=== PATIENT | male | born 1990 | race American Indian/Alaskan Native ===

== ENCOUNTER 2019-02-27 04:45 | Day surgery (SDC) | payer OTHER ==
[2019-02-27 07:49] VITALS: BMI 21.7
[2019-02-27 11:15] VITALS: TEMP 98.6
[2019-02-27 14:28] VITALS: BP 113/66; PULSE 69
--- NOTE | 2019-02-28 17:49 | PATH ---
Surgical Pathology Report Patient Name: PAM TEIXEIRA [facility]. Rec. #: [id number] /Age/Gender: 1990 (Age: 29) / M Account: [id number] Location: U-ENDOSCOPY Taken: 02/27/2019 Received: 02/27/2019 Reported: 02/28/2019 Physicians: Jaspal Barrett D.O. Specimen(s) Received A: DUODENUM B: BODY/ANTRUM Clinical History Early satiety, H. Pylori Postoperative diagnosis: Gastritis Final Diagnosis A. DUODENUM, BIOPSY: DUODENAL MUCOSA WITHOUT SIGNIFICANT PATHOLOGIC FINDINGS. B. STOMACH, BODY/ANTRUM, BIOPSY: GASTRIC MUCOSA WITH MODERATE CHRONIC ACTIVE GASTRITIS. IMMUNOHISTOCHEMICAL STAIN FOR H. PYLORI IS POSITIVE (MANY). Electronically Signed Sandi Kilpatrick M.D. Gross Description A. Received in formalin, labeled "biopsy duodenum" is a garcia, irregular portion of soft tissue measuring 0.4 cm. in greatest dimension. The specimen is submitted in toto in one cassette. B. Received in formalin, labeled "biopsy body/antrum" are 5 garcia, irregular portions of soft tissue ranging from 0.3-0.5 cm. in greatest dimension. The specimens are submitted in toto in one cassette. 02/27/201902/27/2019
== END 2019-02-27 12:10 | disposition home or self-care (01) ==
LOC: JASU-ENDO 04:45
PROVIDERS: ATTEND Internal Medicine Gastroenterology
PROC: 0DB68ZX Excision of Stomach, Via Natural or Artificial Opening Endoscopic, Diagnostic (ICD-10-PCS; principal; 2019-02-27 09:45)
DX: R10.13 Epigastric pain (principal); K29.70 Gastritis, unspecified, without bleeding
CPT/HCPCS: 88305-TC; 88342-TC

== ENCOUNTER 2021-03-05 08:00 | Emergency (ER) | payer OTHER ==
[2021-03-05 08:07] VITALS: BP 131/87; PULSE 91; TEMP 98; BMI 23.0
== END 2021-03-05 09:41 | disposition home or self-care (01) ==
LOC: JERFT 08:00
DX: S13.4XXA Sprain of ligaments of cervical spine, initial encounter (principal); M25.512 Pain in left shoulder; V43.52XA Car driver injured in collision with other type car in traffic accident, initial encounter
CPT/HCPCS: 72050-TC-FY; 73030-TC-LT-FY; 99284-25